=== PATIENT | male | born 1955 | race Two or more races ===

== ENCOUNTER 2021-03-22 10:41 | Outpatient (CLI) | payer OTHER | END 2021-03-22 10:43 | disposition home or self-care (01) | LOC: LAB 10:41 | PROVIDERS: ATTEND Physical Medicine & Rehabilitation | DX: M54.2 Cervicalgia (principal); M54.6 Pain in thoracic spine; M54.5 Low back pain; D64.89 Other specified anemias; N17.8 Other acute kidney failure; E78.49 Other hyperlipidemia; E56.8 Deficiency of other vitamins ==

== ENCOUNTER 2022-10-06 09:58 | Outpatient (CLI) | payer OTHER | END 2022-10-06 10:07 | disposition home or self-care (01) | LOC: RAD 09:58 | PROVIDERS: ATTEND Physical Medicine & Rehabilitation | DX: M16.10 Unilateral primary osteoarthritis, unspecified hip (principal); M79.604 Pain in right leg ==